=== PATIENT | male | born 1980 | race Caucasian/White ===

== ENCOUNTER 2017-01-31 14:18 | Emergency (ER) | payer OTHER ==
[~2017-01-31] VITALS: Ht 177.8 cm; Wt 74.8 kg
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
[~2017-01-31 14:18] MED LIST: ATARAX PO; BACTRIM DS TABL1 TA1 PO; DIAZEPAM PO; ELIMITE60 GM TOP; LORTAB 10/500 T1 TAB PO; MEDROL PO; NO MEDICATIONS; ULTRACET TABLET1 TAB PO; VOLTAREN50 MG PO
== END 2017-01-31 14:30 | disposition home or self-care (01) ==
LOC: CED 14:18
DX: S68.012A Complete traumatic metacarpophalangeal amputation of left thumb, initial encounter (principal); F17.210 Nicotine dependence, cigarettes, uncomplicated; Z88.5 Allergy status to narcotic agent; Z23 Encounter for immunization; W27.8XXA Contact with other nonpowered hand tool, initial encounter; Y92.009 Unspecified place in unspecified non-institutional (private) residence as the place of occurrence of the external cause
CPT/HCPCS: 73140; 90471; 90715; 99284